=== PATIENT | male | born 1950 | race Caucasian/White ===

== ENCOUNTER 2018-04-23 11:38 | Day surgery (SDC) | payer MEDICARE, OTHER ==
[2018-04-23] MEDS ORDERED: LACTATED RINGERS 1,000 ML IV ONE (11:50)
[2018-04-23] MEDS ORDERED: MIDAZOLAM 2 MG/2 ML VIAL IVP ONE (12:31)
[2018-04-23] MEDS ORDERED: fentaNYL 250 MCG/5 ML VIAL IVP ONE (12:31)
[2018-04-23 13:38] VITALS: BP 131/87
== END 2018-04-23 11:39 | disposition home or self-care (01) ==
LOC: SDS 11:38
PROVIDERS: ATTEND Surgery
PROC: 0DBP8ZX Excision of Rectum, Via Natural or Artificial Opening Endoscopic, Diagnostic (ICD-10-PCS; principal; 2018-04-23 12:45)
DX: Z12.11 Encounter for screening for malignant neoplasm of colon (principal); D12.8 Benign neoplasm of rectum; K64.8 Other hemorrhoids; Z86.010 Personal history of colon polyps
CPT/HCPCS: 45380; J7120; 88305

== ENCOUNTER 2019-02-22 08:00 | Outpatient (CLI) | payer MEDICARE, OTHER ==
[2019-02-22 17:53] LABS: PSA FREE 0.43 ng/mL (0.16-2.81)
[2019-02-22 17:54] LABS: PSA TOTAL 3.76 ng/mL (0.000-2.000)
== END 2019-02-22 23:59 | disposition home or self-care (01) ==
LOC: LAB.F 08:00
PROVIDERS: ATTEND Urology
DX: R97.20 Elevated prostate specific antigen [PSA] (principal)
CPT/HCPCS: 36415; 84153; 84154

== ENCOUNTER 2021-06-26 09:38 | Outpatient (CLI) | payer MEDICARE, OTHER ==
[2021-06-26 15:40] LABS: BASOPHILS % (AUTO) 0.5 %; EOSINOPHILS # (AUTO) 0.1 10^3/uL (0.0-0.7); EOSINOPHILS % (AUTO) 1.9 %; HGB - HEMOGLOBIN 15.2 g/dL (14.0-18.0); LYMPHOCYTES % (AUTO) 34.5 %; MEAN CORPUSCULAR HEMOGLOBIN 33.2 pg (27.0-31.0); MEAN CORPUSCULAR HGB CONC 34.5 g/dL (32.0-36.0); MEAN CORPUSCULAR VOLUME 96.1 fL (80.0-94.0); MEAN PLATELET VOLUME 11.8 fL (7.4-11.4); MONOCYTES # (AUTO) 0.4 10^3/uL (0.0-1.0); MONOCYTES % (AUTO) 6.4 %; NEUTROPHILS # (AUTO) 3.3 10^3/uL (1.5-6.6); NEUTROPHILS % (AUTO) 56.4 %; PLT - PLATELET COUNT 238 10^3/uL (130-450); RED BLOOD COUNT 4.58 10^6/uL (4.70-6.10); RED CELL DISTRIBUTION WIDTH 12.6 % (12.0-15.0); WHITE BLOOD COUNT 5.8 x10^3/uL (4.8-10.8)
[2021-06-26 15:57] LABS: ALBUMIN 4.2 g/dL (3.2-5.5); ALBUMIN/GLOBULIN RATIO 1.7 (1.0-2.2); BILIRUBIN,TOTAL 0.9 mg/dL (0.2-1.0); CALCIUM 9.1 mg/dL (8.5-10.3); CREATININE 0.9 mg/dL (0.6-1.2); POTASSIUM 4.3 mmol/L (3.5-5.0); TOTAL PROTEIN 6.7 g/dL (6.7-8.2)
[2021-06-26 16:04] LABS: PSA TOTAL 2.624 ng/mL (0.000-2.000)
[2021-06-26 16:42] LABS: PSA FREE 0.503 ng/mL (0.16-2.81)
== END 2021-06-26 09:39 | disposition home or self-care (01) ==
LOC: LAB.S 09:38
PROVIDERS: ATTEND Family Medicine
DX: R53.81 Other malaise (principal); R97.20 Elevated prostate specific antigen [PSA]
CPT/HCPCS: 36415; 80053; 84153; 84154; 84443; 85025

== ENCOUNTER 2022-02-25 08:13 | Outpatient (CLI) | payer MEDICARE, OTHER ==
--- NOTE | 2022-02-25 12:58 | XRAY Report ---
PROCEDURE: Hand 2 View BILAT INDICATIONS: XRAY TECHNIQUE: 2 views of the hand(s) acquired. COMPARISON: None FINDINGS: Bones: No fractures or dislocations. No suspicious bony lesions. Mild osteoarthritic changes throu ghout bilateral hand and wrist joints are seen. No definite bony erosion is seen. Soft tissues: No suspicious soft tissue calcifications. 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 No fracture or dislocation. No gross bony erosion . Reviewed by: Lorenzo Hardin MD on 02/25/2022 12:57 PM PDT Approved by: Lorenzo Hardin MD on 02/25/2022 12:57 PM PDT Station ID: [id number]
--- NOTE | 2022-02-25 12:59 | XRAY Report ---
PROCEDURE: Clavicle RT INDICATIONS: XRAY TECHNIQUE: 2 views of the clavicle were acquired. COMPARISON: None. FINDINGS: Bones: No fractures or dislocations. Mild to moderate acromioclavicular joint and sternoclavicular j oint osteoarthritic changes are seen. No suspicious bony lesions. Soft tissues: No suspicious soft tissue calcifications. IMPRESSION: Mild to moderate right sternoclavicular joint and acromioclavicular joint osteoarthritis. No fracture or dislocation. No suspicious intraosseous lesion. Reviewed by: Lorenzo Hardin MD on 02/25/2022 12:57 PM PDT Approved by: Lorenzo Hardin MD on 02/25/2022 12:57 PM PDT Station ID: [id number]
== END 2022-02-25 08:14 | disposition home or self-care (01) ==
LOC: DI.S 08:13
PROVIDERS: ATTEND Nurse Practitioner Family
DX: M19.011 Primary osteoarthritis, right shoulder (principal); M19.042 Primary osteoarthritis, left hand; M19.041 Primary osteoarthritis, right hand; M19.031 Primary osteoarthritis, right wrist; M19.032 Primary osteoarthritis, left wrist

== ENCOUNTER 2022-03-11 08:46 | Outpatient (CLI) | payer MEDICARE, OTHER ==
--- NOTE | 2022-03-11 11:14 | Ultrasound Report ---
PROCEDURE: Aorta Screening INDICATIONS: HISTORY OF SMOKING TECHNIQUE: Real time scanning was performed of the aorta and iliac arteries, with image documentatio n. COMPARISON: None FINDINGS: Aorta: Proximal aortic diameter measures 2.8 x 2.6 cm. Mid-aorta measures 2.0 x 2.2 cm. Distal aor tic diameter is 1.8 x 2.3 cm. Iliac arteries: Right common iliac artery measures 1.3 x 1.2 cm. Left common iliac artery measures 1.4 x 1.4 cm. Scattered atherosclerotic plaque. IMPRESSION: No abdominal aortic aneurysm. Reviewed by: Lanie Zarco MD, PhD on 03/11/2022 11:12 AM PDT Approved by: Lanie Zarco MD, PhD on 03/11/2022 11:12 AM PDT Station ID: [id number]
== END 2022-03-11 08:47 | disposition home or self-care (01) ==
LOC: DI 08:46
PROVIDERS: ATTEND Nurse Practitioner Family
DX: Z13.6 Encounter for screening for cardiovascular disorders (principal); Z87.891 Personal history of nicotine dependence

== ENCOUNTER 2024-11-13 19:48 | Inpatient (IN) ==
[2024-11-13] MEDS: SODIUM CHLORIDE 0.9% IV STA (20:25)
[2024-11-13 20:38] LABS: BASOPHILS % (AUTO) 0.4 %; HGB - HEMOGLOBIN 11.2 g/dL (14.0-18.0); LYMPHOCYTES # (AUTO) 0.3 10^3/uL (1.5-3.5); MEAN CORPUSCULAR HEMOGLOBIN 32.6 pg (27.0-31.0); MEAN CORPUSCULAR HGB CONC 33.9 g/dL (32.0-36.0); MEAN CORPUSCULAR VOLUME 95.9 fL (80.0-94.0); MEAN PLATELET VOLUME 9.6 fL (7.4-11.4); MONOCYTES # (AUTO) 0.1 10^3/uL (0.0-1.0); NEUTROPHILS # (AUTO) 2.4 10^3/uL (1.5-6.6); NEUTROPHILS % (AUTO) 86.2 %; NRBC ABSOLUTE COUNT (AUTO) 0.02 x10^3/uL; NUCLEATED RED BLOOD CELLS AUTO 0.7 /100WBC; PLT - PLATELET COUNT 170 10^3/uL (130-450); RED BLOOD COUNT 3.44 10^6/uL (4.70-6.10); RED CELL DISTRIBUTION WIDTH 14.3 % (12.0-15.0); WHITE BLOOD COUNT 2.8 x10^3/uL (4.8-10.8)
[2024-11-13 20:43] LABS: SLIDE REVIEW? Indicated
[2024-11-13 20:53] LABS: VBG PH 7.484 (7.31-7.41); VBG PO2 61.2 mmHg (25-47)
[2024-11-13 20:54] LABS: VBG BASE EXCESS -0.6 mmol/L (-2 - +2); VBG OXYGEN SATURATION 92.9 % (60-80)
--- NOTE | 2024-11-13 21:02 | XRAY Report ---
PROCEDURE: XR Chest 1V INDICATIONS: Sepsis TECHNIQUE: One view of the chest was acquired. COMPARISON: CT chest 10/06/2024 FINDINGS: Surgical changes and devices: Partially visualized thoracolumbar fixation rods. Lungs and pleura: Mild appearance of increased vascularity. Mediastinum: Mediastinal contours appear normal. Heart size is enlarged. Bones and chest wall: No suspicious bony lesions. Overlying soft tissues appear unremarkable. IMPRESSION: Mild increased vascularity suggestive of edema. Reviewed by: Radha Ho MD on 11/13/2024 9:01 PM PST Approved by: Radha Ho MD on 11/13/2024 9:01 PM PST Station ID: [id number]
[2024-11-13] MEDS ORDERED: iohexoL-300 100 ML VIAL ONE (21:11)
[2024-11-13 21:17] LABS: PLATELET ESTIMATE, MANUAL NORMAL (130-450,000) (NORMAL); PLATELET MORPHOLOGY NORMAL APPEARANCE (NORMAL); RBC MORPHOLOGY (MULTIPLE) NORMAL APPEARANCE (NORMAL)
[2024-11-13] MEDS: ACETAMINOPHEN 325 MG TABLET PO STA (21:29)
[2024-11-13 21:31] LABS: ALBUMIN 2.6 g/dL (3.2-5.5); ALBUMIN/GLOBULIN RATIO 1.2 (1.0-2.2); BILIRUBIN,TOTAL 0.3 mg/dL (0.2-1.0); CALCIUM 7.4 mg/dL (8.5-10.3); CREATININE 0.6 mg/dL (0.6-1.3); POTASSIUM 3.8 mmol/L (3.5-4.5); TOTAL PROTEIN 4.8 g/dL (6.4-8.9)
[2024-11-13 21:44] LABS: BILIRUBIN,URINE NEGATIVE (NEGATIVE); GLUCOSE, URINE (UA) NEGATIVE (NEGATIVE); KETONES,URINE (UA) NEGATIVE (NEGATIVE); LEUKOCYTE ESTERASE, URINE NEGATIVE (NEGATIVE); NITRITE,URINE NEGATIVE (NEGATIVE); OCCULT BLOOD,URINE NEGATIVE (NEGATIVE); PH,URINE 6.5 PH (5.0-7.5); PROTEIN,URINE NEGATIVE (NEGATIVE); UROBILINOGEN,URINE 1 (NORMAL) E.U./dL (NORMAL)
[2024-11-13 21:53] LABS: CLARITY,URINE CLEAR (CLEAR)
[2024-11-13 21:54] LABS: BACTERIA,URINE None Seen /HPF (None Seen); RBC,URINE None Seen /HPF (0-5); SQUAMOUS EPITHELIAL CELL,UR NONE SEEN (<= Few); WBC,URINE 0-3 /HPF (0-3)
[2024-11-13 21:57] LABS: B. PARAPERTUSSIS- RESP PCR PAN NOT DETECTED; B. PERTUSSIS- RESP PCR PANEL NOT DETECTED; C. PNEUMONIAE- RESP PCR PANEL NOT DETECTED; CORONAVIRUS 229E-RESP PCR NOT DETECTED; CORONAVIRUS HKU1-RESP PCR NOT DETECTED; CORONAVIRUS NL63-RESP PCR NOT DETECTED; CORONAVIRUS OC43-RESP PCR NOT DETECTED; HUMAN METAPNEUMOVIRUS NOT DETECTED; INFLUENZA A- RESP PCR PANEL NOT DETECTED; INFLUENZA B - RESP PCR PANEL NOT DETECTED; M. PNEUMONIAE- RESP PCR PANEL NOT DETECTED; PARAINFLUENZA VIRUS 1 NOT DETECTED; PARAINFLUENZA VIRUS 2 NOT DETECTED; PARAINFLUENZA VIRUS 4 NOT DETECTED; RHINOVIRUS/ENTEROVIRUS NOT DETECTED; RSV- RESP PCR PANEL NOT DETECTED; SARS-CoV-2 -RESP PCR PANEL NOT DETECTED
[2024-11-13] MEDS: CEFEPIME 2 GM in SODIUM CHLORIDE 0.9% MINIBAG 100 ML IV STA (22:05)
--- NOTE | 2024-11-13 22:12 | ED Physician Documentation ---
History of Present Illness Stated complaint Stated Complaint: FEVER/CANCER PT Chief complaint Chief Complaint: Fever History obtained from History obtained from: Patient Additonal information Additional information: 74-year-old man with history of multiple myeloma status post T10 spinal debulking surgery 6 weeks ago, followed by radiation, now currently on chemotherapy with most recent chemo on Monday, Presents with fever of 100.7 at home today, generalized weakness and bodyaches. He has had some cough and chest tightness for the past couple of days that he states may have been ongoing for longer and is experiencing some shortness of breath. also with mild nonerythematous diffuse body rash, worst on extremities and buttocks for several weeks. Meds/Allgy Home Medications Ambulatory Orders Medication Instructions Recorded Confirmed No Known Home Medications 04/20/18 04/20/18 Allergies Allergies Allergy/AdvReac Type Severity Reaction Status Date / Time No Known Drug Allergies Allergy Verified 11/13/24 20:11 [facility] Medical History Medical History (Updated 11/13/24 @ 23:42 by Randi Orosco MD) History of multiple myeloma Social History Social History (Updated 11/13/24 @ 20:12 by Ethel Trujillo, RN, BSN) Smoking Status: Never smoker Do you dip or chew tobacco?: No Relationship: Do you feel safe in your home environment?: Yes Suffered physical, verbal, emotional, or financial abuse?: No ETOH Use: POLST Patient has POLST: No Exam Constitutional normal general appearance and no apparent distress mildly deconditioned appearing HENMT normocephalic, head/scalp atraumatic, oral mucous membranes normal and oropharynx normal Eyes PERRL Neck/C-Spine visual inspection normal Chest inspection of chest normal Respiratory breath sounds equal bilaterally and normal respiratory effort coarse bilateral breath sounds Cardiovascular tachycardic rate, regular rhythm Gastrointestinal abdomen normal to inspection, abdomen soft to palpation and nontender to palpation Genitourinary no CVA tenderness Back/Pelvis spine normal to inspection Extremities normal to inspection Psychiatry oriented x3 Skin skin color normal Results Vitals Vitals: Vital Signs - 24 hr 11/13/24 19:59 11/13/24 21:16 11/13/24 21:29 Temperature 37.1 C 100.6 C H Temperature Source Oral Oral Pulse Rate 124 H Respiratory Rate 16 Blood Pressure 147/81 H O2 Saturation 95 Oxygen Delivery Method O2 Source Room air If not protocol: Oxygen Flow, liters/minute Pain Intensity 4 0 11/13/24 22:20 11/13/24 22:23 11/13/24 22:23 Temperature Temperature Source Pulse Rate 95 Respiratory Rate Blood Pressure 139/78 H O2 Saturation 87 L 94 Oxygen Delivery Method Nasal Cannula O2 Source Room air Nasal cannula If not protocol: Oxygen Flow, liters/minute 3 Pain Intensity 11/13/24 22:36 11/13/24 22:40 Temperature 36.3 C L Temperature Source Temporal Artery Scan Pulse Rate Respiratory Rate Blood Pressure O2 Saturation Oxygen Delivery Method O2 Source If not protocol: Oxygen Flow, liters/minute Pain Intensity 0 Oxygen O2 Source Nasal cannula Labs Labs: Laboratory Tests 11/13/24 11/13/24 11/13/24 20:20 20:30 21:00 WBC 2.8 L RBC 3.44 L Hgb 11.2 L Hct 33.0 L MCV 95.9 H MCH 32.6 H MCHC 33.9 RDW 14.3 Plt Count 170 MPV 9.6 Neut # (Auto) 2.4 Lymph # (Auto) 0.3 L Stearns # (Auto) 0.1 Eos # (Auto) 0.0 Baso # (Auto) 0.0 Absolute Nucleated RBC 0.02 Nucleated RBC % 0.7 Manual Slide Review Indicated Platelet Estimate NORMAL (130-450,000) Platelet Morphology NORMAL APPEARANCE RBC Morph Micro Appear NORMAL APPEARANCE VBG pH 7.484 H VBG pCO2 30.0 L VBG pO2 61.2 H VBG HCO3 22.0 L VBG Total CO2 23.0 L VBG O2 Saturation 92.9 H VBG Base Excess -0.6 Sodium 137 Potassium 3.8 Chloride 109 Carbon Dioxide 24 Anion Gap 4.0 L BUN 26 H Creatinine 0.6 Estimated GFR (MDRD) 132 Glucose 116 H Lactic Acid 1.1 Calcium 7.4 L Total Bilirubin 0.3 AST 12 ALT 26 Alkaline Phosphatase 48 Total Protein 4.8 L Albumin 2.6 L Globulin 2.2 Albumin/Globulin Ratio 1.2 Urine Color Urine Clarity Urine pH Ur Specific Ward Urine Protein Urine Glucose (UA) Urine Ketones Urine Occult Blood Urine Nitrite Urine Bilirubin Urine Urobilinogen Ur Leukocyte Esterase Urine RBC Urine WBC Ur Squamous Epith Cells Urine Bacteria Urine Culture Comments Nasal Adenovirus (PCR) NOT DETECTED Nasal B. parapertussis DNA (PCR) NOT DETECTED Nasal Coronavir 229E PCR NOT DETECTED Nasal Coronavir HKU1 PCR NOT DETECTED Nasal Coronavir NL63 PCR NOT DETECTED Nasal Coronavir OC43 PCR NOT DETECTED Nasal Enterovir/Rhinovir PCR NOT DETECTED Nasal Influenza B PCR NOT DETECTED Nasal Influenza A PCR NOT DETECTED Nasal Parainfluen 1 PCR NOT DETECTED Nasal Parainfluen 2 PCR NOT DETECTED Nasal Parainfluen 3 PCR NOT DETECTED Nasal Parainfluen 4 PCR NOT DETECTED Nasal RSV (PCR) NOT DETECTED Nasal B.pertussis DNA PCR NOT DETECTED Nasal C.pneumoniae (PCR) NOT DETECTED Howie Human Metapneumo PCR NOT DETECTED Nasal M.pneumoniae (PCR) NOT DETECTED Nasal SARS-CoV-2 (PCR) NOT DETECTED 11/13/24 21:15 WBC RBC Hgb Hct MCV MCH MCHC RDW Plt Count MPV Neut # (Auto) Lymph # (Auto) Stearns # (Auto) Eos # (Auto) Baso # (Auto) Absolute Nucleated RBC Nucleated RBC % Manual Slide Review Platelet Estimate Platelet Morphology RBC Morph Micro Appear VBG pH VBG pCO2 VBG pO2 VBG HCO3 VBG Total CO2 VBG O2 Saturation VBG Base Excess Sodium Potassium Chloride Carbon Dioxide Anion Gap BUN Creatinine Estimated GFR (MDRD) Glucose Lactic Acid Calcium Total Bilirubin AST ALT Alkaline Phosphatase Total Protein Albumin Globulin Albumin/Globulin Ratio Urine Color YELLOW Urine Clarity CLEAR Urine pH 6.5 Ur Specific Ward 1.020 Urine Protein NEGATIVE Urine Glucose (UA) NEGATIVE Urine Ketones NEGATIVE Urine Occult Blood NEGATIVE Urine Nitrite NEGATIVE Urine Bilirubin NEGATIVE Urine Urobilinogen 1 (NORMAL) Ur Leukocyte Esterase NEGATIVE Urine RBC None Seen Urine WBC 0-3 Ur Squamous Epith Cells NONE SEEN Urine Bacteria None Seen Urine Culture Comments NOT INDICATED Nasal Adenovirus (PCR) Nasal B. parapertussis DNA (PCR) Nasal Coronavir 229E PCR Nasal Coronavir HKU1 PCR Nasal Coronavir NL63 PCR Nasal Coronavir OC43 PCR Nasal Enterovir/Rhinovir PCR Nasal Influenza B PCR Nasal Influenza A PCR Nasal Parainfluen 1 PCR Nasal Parainfluen 2 PCR Nasal Parainfluen 3 PCR Nasal Parainfluen 4 PCR Nasal RSV (PCR) Nasal B.pertussis DNA PCR Nasal C.pneumoniae (PCR) Howie Human Metapneumo PCR Nasal M.pneumoniae (PCR) Nasal SARS-CoV-2 (PCR) PD Medical Decision Making ED course ED course: 74yM with pmh multiple myeloma on chemo p/w fever and cough/soa, found to be tachycardic here in the ED. 30cc/kg bolus provided and panscan ordered to evaluate for PE and potential septic source. Empiric cefepime provided. ANC 2.4 therefore not neutropenic. Plan to admit [facility] for sepsis, likely repiratory in origin. pending ct reports. Discharge Plan Discharge Patient Disposition: [facility] DC/Xfer Condition: Stable Clinical Impression: Sepsis, Hypoxia Prescriptions: No Action No Known Home Medications Print Language: Sinhala
[2024-11-13] MEDS: iohexoL-300 100 ML VIAL IVP ONE (22:17)
--- NOTE | 2024-11-13 22:45 | CT Report ---
PROCEDURE: CT Angio Chest INDICATIONS: soa, hypoxia CONTRAST: 100 ML OMNI 300 TECHNIQUE: After the administration of intravenous contrast, 2 mm axial images were acquired from the pulmonary apices to the posterior costophrenic angles during the arterial phase. In addition, 1 mm lung kernel and 5 mm soft tissue kernel reconstructions were performed. 3-dimensional coronal oblique maximum int ensity projection (MIP) reformats, 8 mm axial MIP, and 5 mm coronal and sagittal MPR reformats were t hen performed through the thorax. For radiation dose reduction, the following was used: automated exp osure control, adjustment of mA and/or kV according to patient size. COMPARISON: CT chest 10/06/2024 FINDINGS: Image quality: Limited evaluation of segmental pulmonary artery secondary to contrast opacification. Large vessels: No filling defects within the opacified central pulmonary arteries, accounting for mot ion and contrast timing. No evidence of acute aortic syndrome or aortic aneurysm. Lungs and pleura: No consolidation. No pleural effusions. No pneumothorax. No suspicious pulmonary n odules which require follow up. Mediastinum: Heart size is normal. No pericardial effusion. No large vessel abnormality. No mediastin al adenopathy by size criteria. Chest wall and lower neck: Thyroid is unremarkable. No axillary or supraclavicular adenopathy by size . Bones: Multilevel presumed kyphoplasty cement perfusion is present within the lower thoracic spine. M ultiple areas of lucency are present consistent with areas of pathologic fracture and known metastati c disease unchanged. Upper Abdomen: Unremarkable. IMPRESSION: No central pulmonary embolus. Distal branches cannot be excluded. No gross effusions or consolidations. Reviewed by: Radha Ho MD on 11/13/2024 10:44 PM PST Approved by: Radha Ho MD on 11/13/2024 10:44 PM PST Station ID: [id number]
--- NOTE | 2024-11-13 22:48 | CT Report ---
PROCEDURE: CT Abdomen/Pelvis W INDICATIONS: sepsis CONTRAST: 100 ML OMNI 300 TECHNIQUE: After the administration of intravenous contrast, a CT scan of the abdomen and pelvis was performed. Images were recorded and evaluated at appropriate window settings. Reformats: coronal and sagittal. F or radiation dose reduction, the following was used: automated exposure control, adjustment of mA and /or kV according to patient size. COMPARISON: CT abdomen pelvis 10/06/2024 FINDINGS: Image quality: Diagnostic. Lower chest: Unremarkable. Liver: Multiple simple hepatic cysts. Gallbladder: Unremarkable. Biliary tree: No intrahepatic or extrahepatic dilation, accounting for age. Spleen: No splenomegaly. Pancreas: No pancreatic ductal dilation. Adrenals: No adrenal nodule. Kidneys and ureters: No hydronephrosis. No renal cystic lesion which requires follow up. No solid mas s. Stomach, bowel and peritoneum: No gastric or small bowel dilation. No abnormal wall thickening. No pa thologic free fluid. Prominent colonic stool without obstruction. Lymph nodes: No central or retroperitoneal adenopathy. Vessels: No infrarenal aortic aneurysm. Patent portal vein. PELVIS Reproductive organs: Prostate gland is enlarged. Bladder: No abnormal wall thickening, accounting for underdistention. Pelvic lymph nodes: No pelvic adenopathy by size criteria. Bones: Multilevel thoracic kyphoplasty changes as well as areas of lucency in pathologic fracture con sistent with known metastatic disease. Overall appearance is stable. Other: No significant ventral or inguinal hernia. IMPRESSION: Prominent colonic stool without obstruction. Otherwise, no acute abdominal or pelvic process. Known osseous metastatic disease, unchanged. Reviewed by: Radha Ho MD on 11/13/2024 10:46 PM PST Approved by: Radha Ho MD on 11/13/2024 10:46 PM PST Station ID: [id number]
[2024-11-14] MEDS ORDERED: SODIUM CHLORIDE FLUSH 0.9% 10 ML SYRINGE IVP PRN (00:15)
[2024-11-14] MEDS ORDERED: ONDANSETRON 4 MG/2 ML VIAL IVP PRN (00:15)
--- NOTE | 2024-11-14 00:31 | HISTORY & PHYSICAL EXAMINATION ---
Chief Complaint Chief Complaint Chief Complaint: fever History of Present Illness Admitted From Admitted From:: home History Obtained From Records Reviewed: yes History obtained from: patient + chart review Exam Limitations: telemedicine History of Present Illness HPI Comment/Other: Mr Reynolds is a 74 yo M with history of multiple myeloma, currently undergoing chemotherapy, last on MondayNov 11. Status post T10 debulking surgery 6 weeks ago followed by radiation thearapy. Patient reports that usually he feels fine after chemotherapy, however the past 2 days he has been feeling "off", he felt hot/cold on Monday, and then today (Monday) measured fever of 101 at home. He has also been having a dry nonproductive cough. Denies sick contacts. Denies chest pain, palpitations, shortness of breath, abdominal pain, nausea, vomiting, dysuria, hematuria or LE swelling. Denies diarrhea, last BM was today. Tolerating diet well. He met sepsis criteria at admission in ER and was treated with sepsis fluid bolus and empiric IV cefepime. Review of Systems Status of ROS: 10 or more systems reviewed and unremarkable except as noted in history and below Constitutional Reports: Fatigue, Fever, Chills and Malaise; Denies: Changes in appetite or eating habits or Poor appetite Cardiovascular Denies: chest pain, palpitations or edema Respiratory Reports: Cough; Denies: Sputum production, Wheezing or Coughing up blood Gastrointestinal Denies: Abdominal pain, Nausea, Vomiting, Diarrhea or Constipation Genitourinary Denies: Painful urination or Blood in urine Endocrine Reports: Fatigue Allergic/Immunologic Denies: Wheezing [facility] Medical History Medical History (Updated 11/13/24 @ 23:42 by Randi Orosco MD) History of multiple myeloma Social History Social History (Updated 11/13/24 @ 20:12 by Ethel Trujillo, RN, BSN) Smoking Status: Never smoker Do you dip or chew tobacco?: No Relationship: Do you feel safe in your home environment?: Yes Suffered physical, verbal, emotional, or financial abuse?: No ETOH Use: POLST Patient has POLST: No Meds/Allgy Home Medications Ambulatory Orders Medication Instructions Recorded Confirmed No Known Home Medications 04/20/18 04/20/18 Allergies Allergies Allergy/AdvReac Type Severity Reaction Status Date / Time No Known Drug Allergies Allergy Verified 11/13/24 20:11 Exam Constitutional normal general appearance, no apparent distress and alert HENMT normocephalic and head/scalp atraumatic Respiratory normal respiratory effort Neurology no movement abnormality noted and speech normal Psychiatry mental status grossly normal, oriented x3, thought process normal, cooperative and affect normal Skin skin color normal Sepsis Event Note (H) Evaluation Current Stage of Sepsis: Sepsis Possible source of Sepsis: positive Unknown Sepsis Criteria Sepsis Criteria: Recorded Heart Rate greater than 90 bpm, Respiratory: Increasing oxygen requirements and WBC count greater than 12,000 or less than 4000 Conclusion/Plan Lab Results Lab results reviewed: Yes 11/13/24 20:20 11/13/24 21:00 Diagnostic Imaging Results Diagnostic Imaging Results: positive Final report reviewed Other Other Results/Comments: Assessment/Plan: Sepsis -No clear source of infection -Patient reports dry cough, viral respiratory panel negative -CT abd/pelvis negative for signs of infection -No infiltrate/consolidation on chest imaging -Follow up blood cultures -Continue empiric Cefepime and add IV vancomycin for now given immunocompromised state -Febrile and tachycardic at admission, with leukopenia -Continue to monitor closely Acute hypoxia -CTA neg for PE, no pleural effusions -CXR shows mild pulm vascular congestion - follow up BNP -Unsure if recent outpatient echo, if not consider ordering pending BNP results -Consider diuretic if concern for volume overload -Currently on 2 L NC, room air at baseline, wean as tolerated Multiple myeloma currently undergoing chemotherapy -Last chemo on 11/11 -Continue valacyclovir 500 mg daily for ppx (only daily home med per patient) -Follow up with outpatient oncologist in a.m. Full code, confirmed with patient DVT ppx: Lovenox sc Core Measures Anticipated LOS I expect patient to be DC'd or transferred within 96 hours.: Yes DVT/VTE - Prophylaxis VTE/DVT Device ordered at admit?: Yes Telemedicine Consult Details Provider Location & Consult Time Telemedicine consultation conducted via videoconferencing?: Yes
--- NOTE | 2024-11-14 00:40 | HISTORY & PHYSICAL EXAMINATION ---
Chief Complaint Chief Complaint Chief Complaint: fever History of Present Illness History of Present Illness HPI Comment/Other: Mr Reynolds is a 74 yo M with history of multiple myeloma, currently undergoing chemotherapy, last on MondayNov 11. Status post T10 debulking surgery 6 weeks ago followed by radiation thearapy. Patient reports that usually he feels fine after chemotherapy, however the past 2 days he has been feeling "off", he felt hot/cold on Monday, and then today (Monday) measured fever of 101 at home. He has also been having a dry nonproductive cough. Denies sick contacts. Denies chest pain, palpitations, shortness of breath, abdominal pain, nausea, vomiting, dysuria, hematuria or LE swelling. Denies diarrhea, last BM was today. Tolerating diet well. He met sepsis criteria at admission in ER and was treated with sepsis fluid bolus and empiric IV cefepime. [facility] Medical History Medical History (Updated 11/13/24 @ 23:42 by Randi Orosco MD) History of multiple myeloma Social History Social History (Updated 11/13/24 @ 20:12 by Ethel Trujillo RN, BSN) Smoking Status: Never smoker Do you dip or chew tobacco?: No Relationship: Do you feel safe in your home environment?: Yes Suffered physical, verbal, emotional, or financial abuse?: No ETOH Use: POLST Patient has POLST: No Meds/Allgy Home Medications Ambulatory Orders Medication Instructions Recorded Confirmed No Known Home Medications 04/20/18 04/20/18 Allergies Allergies Allergy/AdvReac Type Severity Reaction Status Date / Time No Known Drug Allergies Allergy Verified 11/13/24 20:11 Sepsis Event Note (H) Evaluation Current Stage of Sepsis: Sepsis Possible source of Sepsis: positive Unknown Sepsis Criteria Sepsis Criteria: Recorded Heart Rate greater than 90 bpm, Respiratory: Increasing oxygen requirements and WBC count greater than 12,000 or less than 4000 Conclusion/Plan Lab Results Lab results reviewed: Yes 11/13/24 20:20 11/13/24 21:00
[2024-11-14] MEDS ORDERED: VANCOMYCIN INJ 1.25 GM in SODIUM CHLORIDE 0.9% 250 ML IV SCH ×2 (01:00→12:00)
[2024-11-14] MEDS: SODIUM CHLORIDE FLUSH 0.9% 10 ML SYRINGE IVP SCH (01:27)
[2024-11-14] MEDS: CEFEPIME 1 GM in SODIUM CHLORIDE 0.9% MINIBAG 100 ML IV SCH (05:58)
[2024-11-14 07:32] LABS: BASOPHILS % (AUTO) 0.4 %; HCT - HEMATOCRIT 31.3 % (42.0-52.0); HGB - HEMOGLOBIN 10.9 g/dL (14.0-18.0); LYMPHOCYTES # (AUTO) 0.2 10^3/uL (1.5-3.5); LYMPHOCYTES % (AUTO) 7.9 %; MEAN CORPUSCULAR HEMOGLOBIN 33.6 pg (27.0-31.0); MEAN CORPUSCULAR HGB CONC 34.8 g/dL (32.0-36.0); MEAN CORPUSCULAR VOLUME 96.6 fL (80.0-94.0); MEAN PLATELET VOLUME 9.4 fL (7.4-11.4); MONOCYTES # (AUTO) 0.1 10^3/uL (0.0-1.0); MONOCYTES % (AUTO) 3.8 %; NEUTROPHILS # (AUTO) 2.3 10^3/uL (1.5-6.6); NEUTROPHILS % (AUTO) 87.1 %; NRBC ABSOLUTE COUNT (AUTO) 0.02 x10^3/uL; NUCLEATED RED BLOOD CELLS AUTO 0.8 /100WBC; PLT - PLATELET COUNT 143 10^3/uL (130-450); RED BLOOD COUNT 3.24 10^6/uL (4.70-6.10); RED CELL DISTRIBUTION WIDTH 14.4 % (12.0-15.0); WHITE BLOOD COUNT 2.7 x10^3/uL (4.8-10.8)
[2024-11-14 07:36] LABS: SLIDE REVIEW? Indicated
[2024-11-14 07:55] LABS: CALCIUM 7.5 mg/dL (8.5-10.3); CREATININE 0.6 mg/dL (0.6-1.3); POTASSIUM 3.8 mmol/L (3.5-4.5)
[2024-11-14 07:59] LABS: PLATELET ESTIMATE, MANUAL NORMAL (130-450,000) (NORMAL); PLATELET MORPHOLOGY NORMAL APPEARANCE (NORMAL); RBC MORPHOLOGY (MULTIPLE) NORMAL APPEARANCE (NORMAL)
[2024-11-14] MEDS: ENOXAPARIN 40 MG/0.4 ML SYRINGE SUBQ SCH (08:16)
[2024-11-14] MEDS: valACYclovir 500 MG TABLET PO SCH (08:16)
[2024-11-14] MEDS: VANCOMYCIN INJ 1 GM, VANCOMYCIN INJ 500 MG in SODIUM CHLORIDE 0.9% 500 ML IV SCH (08:53)
--- NOTE | 2024-11-14 09:10 | PROVIDER PROGRESS NOTE ---
Subjective Prog Note Date Prog Note Date: 11/14/24 Prog Note Time: 09:07 Subjective Subjective: feeling fine. no pain today. coughs when he takes a deep breath. has not tried to wean off O2 overnight. This afternoon when I come in he is sleeping soundly. RN did try to wean him, and was not successful. As he sleeps, I am able ausculate posterior lung blackman which are clear with good air movement. Current Medications Current Medications Current Medications: Current Medications Generic Name Dose Route Start Last Admin Trade Name Freq PRN Reason Stop Dose Admin Acetaminophen 650 mg 11/14/24 00:15 Acetaminophen 325 Mg Tablet PO Q4HR PRN Pain 1 to 4, or Fever Enoxaparin Sodium 40 mg 11/14/24 09:00 11/14/24 08:16 Enoxaparin 40 Mg/0.4 Ml Syringe SUBQ 40 mg DAILY JEFF Administration Cefepime HCl 1 gm/ Sodium 100 mls @ 200 mls/hr 11/14/24 06:00 11/14/24 06:28 Chloride IV Infused TID JEFF Infusion Vancomycin HCl 1 gm/ 500 mls @ 250 mls/hr 11/14/24 09:00 11/14/24 08:53 Vancomycin HCl 500 mg/ Sodium IV 250 mls/hr Chloride Q24H JEFF Administration Ondansetron HCl 4 mg 11/14/24 00:15 Ondansetron 4 Mg/2 Ml Vial IVP Q6HR PRN Nausea / Vomiting Sodium Chloride 10 ml 11/14/24 00:15 Sodium Chloride Flush 0.9% 10 Ml Syringe IVP PRN PRN NEEDED PER PROVIDER ORDERS Sodium Chloride 10 ml 11/14/24 01:00 11/14/24 08:16 Sodium Chloride Flush 0.9% 10 Ml Syringe IVP 10 ml 0100,0900,1700 JEFF Administration Valacyclovir HCl 500 mg 11/14/24 09:00 11/14/24 08:16 Valacyclovir 500 Mg Tablet PO 500 mg DAILY JEFF Administration Vancomycin HCl 1 each 11/14/24 00:37 Vancomycin: Pharmacy To Dose MC .ONCE PRN PER PHARMACY Objective Vital Signs/Intake & Output Vital Signs: Vital Signs x48h Temp Pulse Resp BP Pulse Ox O2 Flow Rate 11/14/24 08:20 36.8 C 90 20 134/75 H 91 L 2 11/14/24 04:58 37.4 C 96 20 132/77 H 94 2 11/14/24 01:15 37.2 C 94 22 148/86 H 92 Intake & Output: Intake & Output 11/11/24 11/12/24 11/13/24 11/14/24 23:59 23:59 23:59 23:59 Intake Total 2154.76 / 2154.76 340 / 340 Balance 2154.76 / 2154.76 340 / 340 Weight (kg) 68.492 kg 72.5 kg Objective General Appearance: positive No acute distress Eyes Bilateral: positive Conjunctivae nml ENT: positive ENT inspection nml Neck: positive Trachea midline Respiratory: positive No respiratory distress and Breath sounds nml Cardiovascular: positive Regular rate & rhythm Abdomen: positive No distention Skin: positive Color nml and No rash Extremities: positive No pedal edema Neurologic/Psychiatric: positive Oriented x3 Lab Results 11/14/24 07:23 11/14/24 07:23 Other Labs: Lab Results x24hrs 11/14/24 11/14/24 11/13/24 Range/Units 07:23 01:22 21:15 WBC 2.7 L (4.8-10.8) x10^3/uL RBC 3.24 L (4.70-6.10) 10^6/uL Hgb 10.9 L (14.0-18.0) g/dL Hct 31.3 L (42.0-52.0) % MCV 96.6 H (80.0-94.0) fL MCH 33.6 H (27.0-31.0) pg MCHC 34.8 (32.0-36.0) g/dL RDW 14.4 (12.0-15.0) % Plt Count 143 (130-450) 10^3/uL MPV 9.4 (7.4-11.4) fL Neut # (Auto) 2.3 (1.5-6.6) 10^3/uL Lymph # (Auto) 0.2 L (1.5-3.5) 10^3/uL [place] # (Auto) 0.1 (0.0-1.0) 10^3/uL Eos # (Auto) 0.0 (0.0-0.7) 10^3/uL Baso # (Auto) 0.0 (0.0-0.1) 10^3/uL Absolute Nucleated RBC 0.02 x10^3/uL Nucleated RBC % 0.8 /100WBC Manual Slide Review Indicated Platelet Estimate NORMAL (130-450,000) (NORMAL) Platelet Morphology NORMAL APPEARANCE (NORMAL) RBC Morph Micro Appear NORMAL APPEARANCE (NORMAL) VBG pH (7.31-7.41) VBG pCO2 (41-51) mmHg VBG pO2 (25-47) mmHg VBG HCO3 (23-28) mmol/L VBG Total CO2 (24-29) mmol/L VBG O2 Saturation (60-80) % VBG Base Excess (-2 - +2) mmol/L Sodium 135 (135-145) mmol/L Potassium 3.8 (3.5-4.5) mmol/L Chloride 105 (101-111) mmol/L Carbon Dioxide 26 (21-32) mmol/L Anion Gap 4.0 L (6-13) BUN 13 (6-20) mg/dL Creatinine 0.6 (0.6-1.3) mg/dL Estimated GFR (MDRD) 132 (>89) Glucose 88 (74-104) mg/dL Lactic Acid (0.5-2.2) mmol/L Calcium 7.5 L (8.5-10.3) mg/dL Total Bilirubin (0.2-1.0) mg/dL AST (10-42) IU/L ALT (10-60) IU/L Alkaline Phosphatase (42-121) IU/L B-Natriuretic Peptide (5-100) pg/mL Total Protein (6.4-8.9) g/dL Albumin (3.2-5.5) g/dL Globulin (2.1-4.2) g/dL Albumin/Globulin Ratio (1.0-2.2) Urine Color YELLOW Urine Clarity CLEAR (CLEAR) Urine pH 6.5 (5.0-7.5) PH Ur Specific [place] 1.020 (1.002-1.030) Urine Protein NEGATIVE (NEGATIVE) mg/dL Urine Glucose (UA) NEGATIVE (NEGATIVE) mg/dL Urine Ketones NEGATIVE (NEGATIVE) mg/dL Urine Occult Blood NEGATIVE (NEGATIVE) Urine Nitrite NEGATIVE (NEGATIVE) Urine Bilirubin NEGATIVE (NEGATIVE) Urine Urobilinogen 1 (NORMAL) (NORMAL) E.U./dL Ur Leukocyte Esterase NEGATIVE (NEGATIVE) Urine RBC None Seen (0-5) /HPF Urine WBC 0-3 (0-3) /HPF Ur Squamous Epith Cells NONE SEEN (<= Few) Urine Bacteria None Seen (None Seen) /HPF Urine Culture Comments NOT INDICATED Nasal Adenovirus (PCR) Nasal B. parapertussis DNA (PCR) Nasal Coronavir 229E PCR Nasal Coronavir HKU1 PCR Nasal Coronavir NL63 PCR Nasal Coronavir OC43 PCR Nasal Enterovir/Rhinovir PCR Nasal Influenza B PCR Nasal Influenza A PCR Nasal Parainfluen 1 PCR Nasal Parainfluen 2 PCR Nasal Parainfluen 3 PCR Nasal Parainfluen 4 PCR Nasal RSV (PCR) Nasal Screen MRSA (PCR) NEGATIVE (NEGATIVE) Nasal B.pertussis DNA PCR Nasal C.pneumoniae (PCR) Howie Human Metapneumo PCR Nasal M.pneumoniae (PCR) Nasal SARS-CoV-2 (PCR) 11/13/24 11/13/24 11/13/24 Range/Units 21:00 20:30 20:20 WBC 2.8 L (4.8-10.8) x10^3/uL RBC 3.44 L (4.70-6.10) 10^6/uL Hgb 11.2 L (14.0-18.0) g/dL Hct 33.0 L (42.0-52.0) % MCV 95.9 H (80.0-94.0) fL MCH 32.6 H (27.0-31.0) pg MCHC 33.9 (32.0-36.0) g/dL RDW 14.3 (12.0-15.0) % Plt Count 170 (130-450) 10^3/uL MPV 9.6 (7.4-11.4) fL Neut # (Auto) 2.4 (1.5-6.6) 10^3/uL Lymph # (Auto) 0.3 L (1.5-3.5) 10^3/uL [place] # (Auto) 0.1 (0.0-1.0) 10^3/uL Eos # (Auto) 0.0 (0.0-0.7) 10^3/uL Baso # (Auto) 0.0 (0.0-0.1) 10^3/uL Absolute Nucleated RBC 0.02 x10^3/uL Nucleated RBC % 0.7 /100WBC Manual Slide Review Indicated Platelet Estimate NORMAL (130-450,000) (NORMAL) Platelet Morphology NORMAL APPEARANCE (NORMAL) RBC Morph Micro Appear NORMAL APPEARANCE (NORMAL) VBG pH 7.484 H (7.31-7.41) VBG pCO2 30.0 L (41-51) mmHg VBG pO2 61.2 H (25-47) mmHg VBG HCO3 22.0 L (23-28) mmol/L VBG Total CO2 23.0 L (24-29) mmol/L VBG O2 Saturation 92.9 H (60-80) % VBG Base Excess -0.6 (-2 - +2) mmol/L Sodium 137 (135-145) mmol/L Potassium 3.8 (3.5-4.5) mmol/L Chloride 109 (101-111) mmol/L Carbon Dioxide 24 (21-32) mmol/L Anion Gap 4.0 L (6-13) BUN 26 H (6-20) mg/dL Creatinine 0.6 (0.6-1.3) mg/dL Estimated GFR (MDRD) 132 (>89) Glucose 116 H (74-104) mg/dL Lactic Acid 1.1 (0.5-2.2) mmol/L Calcium 7.4 L (8.5-10.3) mg/dL Total Bilirubin 0.3 (0.2-1.0) mg/dL AST 12 (10-42) IU/L ALT 26 (10-60) IU/L Alkaline Phosphatase 48 (42-121) IU/L B-Natriuretic Peptide 89 (5-100) pg/mL Total Protein 4.8 L (6.4-8.9) g/dL Albumin 2.6 L (3.2-5.5) g/dL Globulin 2.2 (2.1-4.2) g/dL Albumin/Globulin Ratio 1.2 (1.0-2.2) Urine Color Urine Clarity (CLEAR) Urine pH (5.0-7.5) PH Ur Specific [place] (1.002-1.030) Urine Protein (NEGATIVE) mg/dL Urine Glucose (UA) (NEGATIVE) mg/dL Urine Ketones (NEGATIVE) mg/dL Urine Occult Blood (NEGATIVE) Urine Nitrite (NEGATIVE) Urine Bilirubin (NEGATIVE) Urine Urobilinogen (NORMAL) E.U./dL Ur Leukocyte Esterase (NEGATIVE) Urine RBC (0-5) /HPF Urine WBC (0-3) /HPF Ur Squamous Epith Cells (<= Few) Urine Bacteria (None Seen) /HPF Urine Culture Comments Nasal Adenovirus (PCR) NOT DETECTED Nasal B. parapertussis DNA (PCR) NOT DETECTED Nasal Coronavir 229E PCR NOT DETECTED Nasal Coronavir HKU1 PCR NOT DETECTED Nasal Coronavir NL63 PCR NOT DETECTED Nasal Coronavir OC43 PCR NOT DETECTED Nasal Enterovir/Rhinovir PCR NOT DETECTED Nasal Influenza B PCR NOT DETECTED Nasal Influenza A PCR NOT DETECTED Nasal Parainfluen 1 PCR NOT DETECTED Nasal Parainfluen 2 PCR NOT DETECTED Nasal Parainfluen 3 PCR NOT DETECTED Nasal Parainfluen 4 PCR NOT DETECTED Nasal RSV (PCR) NOT DETECTED Nasal Screen MRSA (PCR) (NEGATIVE) Nasal B.pertussis DNA PCR NOT DETECTED Nasal C.pneumoniae (PCR) NOT DETECTED Howie Human Metapneumo PCR NOT DETECTED Nasal M.pneumoniae (PCR) NOT DETECTED Nasal SARS-CoV-2 (PCR) NOT DETECTED Sepsis Event Note (H) Evaluation Current Stage of Sepsis: Sepsis Possible source of Sepsis: positive Unknown Sepsis Criteria Sepsis Criteria: Recorded Heart Rate greater than 90 bpm, Respiratory: Increasing oxygen requirements and WBC count greater than 12,000 or less than 4000 Assessment/Plan Problem List (1) Hypoxia: Impression: admitted with acute hypoxic respiratory failure and cough. Imaging of the chest does not show infiltrate. respiratory panel is negative. He is not on oxygen at baseline. His BNP is 89. there is no indication that this hypoxia is related to heart failure, and therefore no indication for echocardiogram. I am adding decadron to reduce inflammation in his lungs. Hopefully this will improve oxygenation. (2) Sepsis: Impression: without clear source aside from hypoxia. he does not have increasing oxygen requirements. But, he is not weaning off oxygen at this time, his sats about 86% on RA at rest. He is currently on vancomycin and cefepime. ANC is 2.4 on admit, 2.3 today His WBC count is stable, 2.7 today. (3) Pathological fracture of vertebra: Impression: About 6 weeks s/p debulking and thoracic fusion after T-10 pathological fracture. (4) Multiple myeloma: Impression: last chemo 11/11. He is on valcyclovir for prophylaxis. Primary oncologist at [facility]. I have called [facility] and spoken with RN in the multiple myeloma clinic regarding this hospitalization. PCP is Macarena Rogers at [facility]. I have spent 45 minutes in the care of this patient today. This includes time [id number], review and ordering of diagnostic imaging and laboratory studies.. Monitoring the patient's signs symptoms, evaluation of medication effectiveness and patient's response to treatment.
--- NOTE | 2024-11-14 11:14 | PHARMACY PROGRESS NOTE ---
Vancomycin Therapy Monitoring Vancomycin Therapy Goals Treatment Indication: EMPIRIC Vancomycin Target Range: Vancomycin AUC Target Range 400-600 mcg*h/ml Plan: Vancomycin Loading Dose (GM, if applicable): 1500MG X1 AT 0900 TODAY New Regimen (Enter new dose and interval): 1G Q12H WITH ANTICIPATED AUC OF 428 Vancomycin Level Recommendation: Vancomycin Level Recommendation (OBTAIN LEVEL AFTER 4 TO 5 DOSES IF CONTINUING THERAPY)
--- NOTE | 2024-11-14 14:14 | PHARMACY PROGRESS NOTE ---
Best Possible Medication History Admit Date and Time: 11/14/24 0015 Home Medications Medication Instructions Recorded Confirmed Type cholecalciferol (vitamin D3) 25 25 mcg PO DAILY 11/14/24 11/14/24 History mcg (1,000 unit) capsule (Vitamin D3) valacyclovir 500 mg tablet 500 mg PO DAILY 11/14/24 11/14/24 History Processed by: Pharmacy (Medication reconciliation completed by pharmacy technician traineeAvelino) Medications reviewed in ED?: No Medication History completed: Yes Patient Interview: Completed Secondary Source(s): Insurance records [facility] Statement: As the person ultimately responsible for medication therapy, providers are able to order a medication from an existing home medication list in [facility] via the "Reconcile Routine" prior to Confirmation of that medication by support teacher. Such practice is discouraged except when the physician, in their clinical judgment, deems that a medical need exists for a medication without regard to previous use.
[2024-11-14] MEDS: ACETAMINOPHEN 325 MG TABLET PO PRN (14:37)
[2024-11-14] MEDS: DEXAMETHASONE 10 MG/ML VIAL IVP ONE (16:25)
[2024-11-14] MEDS: VANCOMYCIN INJ 1 GM in SODIUM CHLORIDE 0.9% 250 ML IV SCH (20:11)
[2024-11-15 05:56] LABS: HCT - HEMATOCRIT 33.3 % (42.0-52.0); HGB - HEMOGLOBIN 11.3 g/dL (14.0-18.0); LYMPHOCYTES # (AUTO) 0.2 10^3/uL (1.5-3.5); LYMPHOCYTES % (AUTO) 4.3 %; MEAN CORPUSCULAR HEMOGLOBIN 32.7 pg (27.0-31.0); MEAN CORPUSCULAR HGB CONC 33.9 g/dL (32.0-36.0); MEAN CORPUSCULAR VOLUME 96.2 fL (80.0-94.0); MEAN PLATELET VOLUME 10.1 fL (7.4-11.4); MONOCYTES # (AUTO) 0.1 10^3/uL (0.0-1.0); MONOCYTES % (AUTO) 2.6 %; NEUTROPHILS # (AUTO) 3.9 10^3/uL (1.5-6.6); NEUTROPHILS % (AUTO) 92.6 %; PLT - PLATELET COUNT 193 10^3/uL (130-450); RED BLOOD COUNT 3.46 10^6/uL (4.70-6.10); RED CELL DISTRIBUTION WIDTH 14.2 % (12.0-15.0); WHITE BLOOD COUNT 4.2 x10^3/uL (4.8-10.8)
[2024-11-15 06:17] LABS: CALCIUM 7.9 mg/dL (8.5-10.3); CREATININE 0.6 mg/dL (0.6-1.3); POTASSIUM 4.1 mmol/L (3.5-4.5)
--- NOTE | 2024-11-15 11:10 | PROVIDER PROGRESS NOTE ---
Subjective Prog Note Date Prog Note Date: 11/15/24 Prog Note Time: 11:08 Subjective Pt reports feeling: Improved Subjective: Feels 100% better. yesterday evening, he had a subjective fever (not recorded as elevated by RN), then that broke and from that point forward he felt much improved. This AM he is sitting up and eating his breakfast. He continues to need oxygen. remains asymtpomatic from a respiratory standpoint. Current Medications Current Medications Current Medications: Current Medications Generic Name Dose Route Start Last Admin Trade Name Freq PRN Reason Stop Dose Admin Acetaminophen 650 mg 11/14/24 00:15 11/14/24 14:37 Acetaminophen 325 Mg Tablet PO 650 mg Q4HR PRN Administration Pain 1 to 4, or Fever Enoxaparin Sodium 40 mg 11/14/24 09:00 11/15/24 08:36 Enoxaparin 40 Mg/0.4 Ml Syringe SUBQ 40 mg DAILY JEFF Administration Cefepime HCl 1 gm/ Sodium 100 mls @ 200 mls/hr 11/14/24 06:00 11/15/24 06:33 Chloride IV Infused TID JEFF Infusion Ondansetron HCl 4 mg 11/14/24 00:15 Ondansetron 4 Mg/2 Ml Vial IVP Q6HR PRN Nausea / Vomiting Sodium Chloride 10 ml 11/14/24 00:15 Sodium Chloride Flush 0.9% 10 Ml Syringe IVP PRN PRN NEEDED PER PROVIDER ORDERS Sodium Chloride 10 ml 11/14/24 01:00 11/15/24 08:37 Sodium Chloride Flush 0.9% 10 Ml Syringe IVP 10 ml 0100,0900,1700 JEFF Administration Valacyclovir HCl 500 mg 11/14/24 09:00 11/15/24 08:37 Valacyclovir 500 Mg Tablet PO 500 mg DAILY JEFF Administration Objective Vital Signs/Intake & Output Reviewed Vital Signs: Yes Vital Signs: Vital Signs x48h Temp Pulse Resp BP Pulse Ox O2 Flow Rate 11/15/24 09:00 36.4 C L 76 18 120/72 93 2 11/15/24 04:50 36.5 C 80 20 131/76 H 94 2 Intake & Output: Intake & Output 11/12/24 11/13/24 11/14/24 11/15/24 23:59 23:59 23:59 23:59 Intake Total 2154.76 / 2154.76 2460 / 2460 470 / 470 Output Total Balance 2153.76 / 76 2459 / 2459 470 / 470 Weight (kg) 68.492 kg 72.5 kg Objective General Appearance: positive No acute distress and Alert Eyes Bilateral: positive Normal inspection ENT: positive ENT inspection nml Neck: positive Nml inspection Respiratory: positive Chest non-tender and Breath sounds nml Cardiovascular: positive Regular rate & rhythm Abdomen: positive No distention Skin: positive Color nml and No rash Extremities: positive No pedal edema Neurologic/Psychiatric: positive Oriented x3 Lab Results 11/15/24 05:11 11/15/24 05:11 Other Labs: Lab Results x24hrs 11/15/24 Range/Units 05:11 WBC 4.2 L (4.8-10.8) x10^3/uL RBC 3.46 L (4.70-6.10) 10^6/uL Hgb 11.3 L (14.0-18.0) g/dL Hct 33.3 L (42.0-52.0) % MCV 96.2 H (80.0-94.0) fL MCH 32.7 H (27.0-31.0) pg MCHC 33.9 (32.0-36.0) g/dL RDW 14.2 (12.0-15.0) % Plt Count 193 (130-450) 10^3/uL MPV 10.1 (7.4-11.4) fL Neut # (Auto) 3.9 (1.5-6.6) 10^3/uL Lymph # (Auto) 0.2 L (1.5-3.5) 10^3/uL [place] # (Auto) 0.1 (0.0-1.0) 10^3/uL Eos # (Auto) 0.0 (0.0-0.7) 10^3/uL Baso # (Auto) 0.0 (0.0-0.1) 10^3/uL Absolute Nucleated RBC 0.00 x10^3/uL Nucleated RBC % 0.0 /100WBC Sodium 138 (135-145) mmol/L Potassium 4.1 (3.5-4.5) mmol/L Chloride 107 (101-111) mmol/L Carbon Dioxide 24 (21-32) mmol/L Anion Gap 7.0 (6-13) BUN 15 (6-20) mg/dL Creatinine 0.6 (0.6-1.3) mg/dL Estimated GFR (MDRD) 132 (>89) Glucose 159 H (74-104) mg/dL Calcium 7.9 L (8.5-10.3) mg/dL Sepsis Event Note (H) Evaluation Current Stage of Sepsis: Sepsis Possible source of Sepsis: positive Unknown Sepsis Criteria Sepsis Criteria: Recorded Heart Rate greater than 90 bpm, Respiratory: Increasing oxygen requirements and WBC count greater than 12,000 or less than 4000 Assessment/Plan Problem List (1) Hypoxia: Impression: admitted with acute hypoxic respiratory failure and cough. Imaging of the chest does not show infiltrate. respiratory panel is negative. He is not on oxygen at baseline. His BNP is 89. there is no indication that this hypoxia is related to heart failure, and therefore no indication for echocardiogram. He received one dose of decadron yesterday, and although he feels better today, his oxygen requirements have not decreased. We discussed the possibility of discharging to home on home oxygen. I have placed the care to his primary care provider's office and requested that they assist with him obtaining a handicap permit as this will significantly help him move around. (2) Sepsis: Impression: without clear source aside from hypoxia. he does not have increasing oxygen requirements. But, he is not weaning off oxygen at this time, his sats about 90 on RA at rest. He is currently on vancomycin and cefepime. ANC is 2.4 on admit, 2.3, and now 3.9 His WBC count is improving, 4.2 today. (3) Pathological fracture of vertebra: Impression: About 6 weeks s/p debulking and thoracic fusion after T-10 pathological fracture. (4) Multiple myeloma: Impression: last chemo 11/11. He is on valcyclovir for prophylaxis. [facility] oncologist at [facility]. I have called [facility] and spoken with RN in the multiple myeloma clinic regarding this hospitalization. I had a discussion with his primary oncologist Dr. Méndez today. I reviewed our current treatment for Mr. Astudillo and Dr. Méndez feels that this is appropriate. He theorizes that steroids daily for 3 weeks were the likely insult on Mr. Astudillo's immune system that likely resulted in this picture of sepsis with respiratory failure. Plan is to defer next chemotherapy treatment for 1 week. This was discussed this afternoon with Mr. Astudillo and his and they are in agreement with this plan. PCP is Macarena Rogers at [facility]. I have spent 52 minutes in the care of this patient today. This includes time [id number], review and ordering of diagnostic imaging and laboratory studies and consultation with his primary oncologist.. Monitoring the patient's signs symptoms, evaluation of medication effectiveness and patient's response to treatment.
[2024-11-16 05:29] LABS: BASOPHILS % (AUTO) 0.4 %; HCT - HEMATOCRIT 33.2 % (42.0-52.0); LYMPHOCYTES # (AUTO) 0.2 10^3/uL (1.5-3.5); MEAN CORPUSCULAR HEMOGLOBIN 32.3 pg (27.0-31.0); MEAN CORPUSCULAR HGB CONC 33.1 g/dL (32.0-36.0); MEAN CORPUSCULAR VOLUME 97.4 fL (80.0-94.0); MEAN PLATELET VOLUME 9.6 fL (7.4-11.4); MONOCYTES # (AUTO) 0.1 10^3/uL (0.0-1.0); MONOCYTES % (AUTO) 3.9 %; NEUTROPHILS # (AUTO) 2.4 10^3/uL (1.5-6.6); NEUTROPHILS % (AUTO) 84.1 %; PLT - PLATELET COUNT 254 10^3/uL (130-450); RED BLOOD COUNT 3.41 10^6/uL (4.70-6.10); WHITE BLOOD COUNT 2.9 x10^3/uL (4.8-10.8)
[2024-11-16 05:45] LABS: CALCIUM 7.9 mg/dL (8.5-10.3); CREATININE 0.7 mg/dL (0.6-1.3)
[2024-11-16 05:57] LABS: DIFFERENTIAL COMMENT MANUAL=AUTO DIFF; PLATELET ESTIMATE, MANUAL NORMAL (130-450,000) (NORMAL); PLATELET MORPHOLOGY NORMAL APPEARANCE (NORMAL); RBC MORPHOLOGY (MULTIPLE) NORMAL APPEARANCE (NORMAL); WBC MORPHOLOGY (MULTIPLE) NORMAL APPEARANCE (NORMAL)
[2024-11-16] MEDS ORDERED: PSEUDOEPHEDRINE 30 MG TABLET PO PRN (07:52)
[2024-11-16 09:15] VITALS: BP 142/73; TEMP 97.7; O2SAT 91
[2024-11-16] MEDS: AMOX/CLAV 875 MG/125 MG TABLET PO SCH (11:22)
--- NOTE | 2024-11-16 11:26 | Discharge Summary ---
Discharge Summary Admit Date: 11/14/24 Discharge Date: 11/16/24 Discharging Provider: Loren Guevara PA-C Primary Care Provider: DAT Munguia Code Status: Attempt Resuscitation DIAGNOSES Discharge Diagnoses with Status of Each Condition: Hypoxia, patient continues to need oxygen at 2 L via nasal cannula Sepsis, without clear source, likely pulmonary Multiple myeloma, last chemotherapy 11/11. Pathological T10 fracture, about 6 weeks status post debulking and spinal fusion. HPI History of Present Illness: Mr Reynolds is a 74 yo M with history of multiple myeloma, currently undergoing chemotherapy, last on MondayNov 11. Status post T10 debulking surgery 6 weeks ago followed by radiation thearapy. Patient reports that usually he feels fine after chemotherapy, however the past 2 days he has been feeling "off", he felt hot/cold on Monday, and then today (Monday) measured fever of 101 at home. He has also been having a dry nonproductive cough. Denies sick contacts. Denies chest pain, palpitations, shortness of breath, abdominal pain, nausea, vomiting, dysuria, hematuria or LE swelling. Denies diarrhea, last BM was today. Tolerating diet well. He met sepsis criteria at admission in ER and was treated with sepsis fluid bolus and empiric IV cefepime. CONSULTS | PROCEDURES Consultations: Saulo Méndez, oncology. Procedures: Chest x-ray: Mild increased vascularity suggestive of edema CTA of the chest: No PE centrally, distal branches cannot be excluded. No gross effusions or consolidations CT abdomen pelvis: Prominent colonic stool without obstruction. Otherwise no acute abdominal or pelvic process. Known osseous metastatic disease is unchanged. HOSPITAL COURSE Hospital Course: (1) Hypoxia: admitted with acute hypoxic respiratory failure and cough. Imaging of the chest does not show infiltrate. respiratory panel is negative. He is not on oxygen at baseline. His BNP is 89. there is no indication that this hypoxia is related to heart failure, and therefore no indication for echocardiogram. He received one dose of decadron on hospital day one, and although he feels better (with regards to energy level), his oxygen requirements have not decreased. He continues to require oxygen he will be discharged home on oxygen therapy. (2) Sepsis: without clear source aside from hypoxia. He was unable to wean from oxygen therapy. He was initially placed on vancomycin and cefepime. This was de-escalated to cefepime on hospital day 2 and then to Augmentin on the date of discharge. Blood cultures which were drawn at the time of admission were negative for 2 days. He did not run a fever while admitted. ANC is 2.4 on admit, 2.3, and then 3.9 His WBC count is Labile, see below. Laboratory Tests 10/06/24 11/13/24 11/14/24 16:43 20:20 07:23 WBC 11.9 H 2.8 L 2.7 L Neut # (Auto) 2.4 2.3 11/15/24 11/16/24 05:11 04:57 WBC 4.2 L 2.9 L Neut # (Auto) 3.9 2.4 (3) Multiple myeloma: last chemo 11/11. He is on valcyclovir for prophylaxis. Primary oncologist at [facility]. I have called [facility] and spoken with RN in the multiple myeloma clinic regarding this hospitalization. I had a discussion with his primary oncologist Dr. Méndez. I reviewed our current treatment for Mr. Astudillo and Dr. Méndez feels that this is appropriate. He theorizes that steroids daily for 3 weeks were the likely insult on Mr. Reynolds's immune system that likely resulted in this picture of sepsis with respiratory failure. Plan is to defer next chemotherapy treatment for 1 week. This was discussed this afternoon with Mr. Reynolds and his and they are in agreement with this plan. PCP is Sammy Rogers at [facility]. I contacted her office on the day prior to discharge and requested arrangement for handicap parking as his mobility in the community is significantly challenged with oxygen therapy. (4) Pathological fracture of vertebra: About 6 weeks s/p debulking and thoracic fusion after T-10 pathological fracture. Doing well. Denies pain. ALLERGIES Allergies Allergy/AdvReac Type Severity Reaction Status Date / Time No Known Drug Allergies Allergy Verified 11/13/24 20:11 MEDICATIONS Ambulatory Orders Medication Instructions Recorded Confirmed cholecalciferol (vitamin D3) 25 25 mcg PO DAILY 11/14/24 11/14/24 mcg (1,000 unit) capsule (Vitamin D3) valacyclovir 500 mg tablet 500 mg PO DAILY 11/14/24 11/14/24 amoxicillin 875 mg-potassium 1 tab PO BID #16 tabs 11/16/24 clavulanate 125 mg tablet PHYSICAL EXAM AT DISCHARGE Physical Exam Other/Comments: General Appearance: positive No acute distress and Alert Eyes Bilateral: positive Normal inspection ENT: positive ENT inspection nml Neck: positive Nml inspection Respiratory: positive Chest non-tender and Breath sounds nml Cardiovascular: positive Regular rate & rhythm Abdomen: positive No distention Skin: positive Color nml and No rash Extremities: positive No pedal edema Neurologic/Psychiatric: positive Oriented x3 LABS 11/16/24 04:57 11/16/24 04:57 SEPSIS Current Stage of Sepsis: Resolved Possible source of Sepsis: Unknown FOLLOW UP Follow Up: Oncology as planned, 11/25. PCP within one week. TIME SPENT Time Spent in Discharge (Minutes): 38 Discharge Plan Discharge Patient Disposition: Home, Self Care Condition: Stable Prescriptions: New amoxicillin-pot clavulanate 875-125 mg Tablet 1 tab PO BID Qty: 16 0RF Continued valacyclovir 500 mg tablet 500 mg PO DAILY cholecalciferol (vitamin D3) [Vitamin D3] 25 mcg (1,000 unit) capsule 25 mcg PO DAILY Activity Restrictions: Activity as Tolerated Diet: Regular Health Concerns: You were admitted with respiratory failure and cough. You were treated for common pneumonia bugs although your chest x-ray did not show a pneumonia. I discussed your situation with your oncologist Dr. Méndez and he feels that the prolonged steroids you were on likely compromised your immune system enough to make you susceptible to infection. We have treated you with IV antibiotics. Additionally at the time you came into the hospital we mare blood cultures to make sure there was not bacteria growing in your blood. We have seen no growth on these blood cultures after 2 days and usually if there is growth we will see it by 2 days. We are discharging you home with an additional 8 days of antibiotics. You will need to take these twice a day. These are best taken with food and they can cause some stomach upset. These have been sent to [facility], please pick them up and take your first dose this evening. You are continuing to need oxygen therapy but I think it is possible you will wean off of this in the coming weeks. I still think a handicapped parking permit is a very good idea right now. You do not have to use it if you do not need it, however with the oxygen it may be very helpful for you as you try to move around in the community. I have placed a call to your primary care provider and asked them to please complete the necessary paperwork. As we have discussed, I think you can get the permanent produce there in [place] with a minimal amount of time and effort As you know I spoke with Dr. Méndez and he would like to delay your next chemo treatment by 1 week. This means that you will be going on 25 November instead of 18 November. Care Plan Goals: To return to your baseline level of function without oxygen. In order to achieve these goals finish all of your antibiotics and continue to follow-up with both your primary care provider and your primary oncologist. Assessment: At this time you are well below your baseline level of function. I think that you will improve with proper support. You need to finish her chemo treatment and then continue to work on getting stronger. Use care when moving around at home to avoid tripping and falling. Be very cognizant of where your oxygen tubing is so that you do not trip on it. Except help from those around you during this time. Follow-up with oncology as scheduled See your primary care provider in 7 to 14 days Plan of Treatment: Continue on previous medications. The only new medication is the Augmentin twice a day for 7 days. Return if you are having increasing shortness of breath and increasing need for oxygen to maintain your oxygen saturation. Print Language: Maltese Patient Instructions: Travel W Oxygen, Oxygen Use Safety, Oxygen Home Use, Oxygen Travel Dc, Oxygen Home Dc Follow-up Care: SAMMY ROGERS ARNP [Physician No Access] -
== END 2024-11-16 13:00 | disposition home or self-care (01) | DRG 871 ==
LOC: ED 19:48 → MS2 19:48
PROVIDERS: ADMIT Student in an Organized Health Care Education/Training Program; ATTEND Physician Assistant Medical
DX: R05.9 Cough, unspecified; M48.54XD Collapsed vertebra, not elsewhere classified, thoracic region, subsequent encounter for fracture with routine healing; R53.83 Other fatigue; A41.9 Sepsis, unspecified organism; C90.00 Multiple myeloma not having achieved remission; T38.0X5A Adverse effect of glucocorticoids and synthetic analogues, initial encounter; R09.02 Hypoxemia; R05.8 Other specified cough; J96.01 Acute respiratory failure with hypoxia